=== PATIENT | male | born 1990 | race African-American/Black ===

== ENCOUNTER 2016-10-04 22:31 | Emergency (ER) | payer OTHER ==
[~2016-10-04] VITALS: Ht 180.3 cm; Wt 112.9 kg
[~2016-10-04 22:31] MED LIST: AZITHROMYCIN250 M1 PO; BENZONATATE200 M1 PO; FLEXERIL10 MG PO; MAGIC MOUTH WASH PO; MOTRIN600 MG PO; MOTRIN800 MG PO; PERCOCET 325 MG1 TA2 PO; POLYTRIM EYE DR10 ML OPH
[2016-10-04 22:57] LABS: ABSOLUTE BASOPHIL COUNT 0 /CUMM (0.0-0.2); ABSOLUTE EOSINOPHIL COUNT 0.2 /CUMM (0.0-0.7); ABSOLUTE GRANULOCYTE CT 4.5 /CUMM (1.4-6.5); ABSOLUTE LYMPH COUNT 2.5 /CUMM (1.2-3.4); ABSOLUTE MONOCYTE COUNT 0.7 /CUMM (0.10-0.60); BASOPHIL % 0.4 % (0.0-2.0); EOSINOPHIL % 2.3 % (0-5); GRANULOCYTE % 57.3 % (42.2-75.2); HEMATOCRIT 39.3 % (42-52); MEAN CORPUSCULAR HGB 29.3 PG (27.0-31.0); MEAN CORPUSCULAR HGB CONC 32.4 G/DL (33.0-37.0); MEAN CORPUSCULAR VOLUME 90.3 FL (80.0-94.0); MEAN PLATELET VOLUME 9.2 FL (7.4-10.4); PLATELET COUNT 183 /CUMM (130-400); RBC DISTRIBUTION WIDTH 12.5 % (11.5-14.5); RED BLOOD CELL CT 4.36 /CUMM (4.70-6.10); WHITE BLOOD CELL COUNT 7.9 /CUMM (4.8-10.8)
--- NOTE | 2016-10-04 23:14 | ED CARDIAC/CP/PALPITATIONS ---
History of Present Illness General Chief Complaint: Chest Pain Stated Complaint: "PER PT SHARP CP" Source: patient Exam Limitations: no limitations Allergies Coded Allergies: NO KNOWN ALLERGIES (05/27/15) Triage Note: TRIAGE: C/O 2-3 DAYS OF INTERMITTENT MIDSTERNAL TO MID EPIGASTRIC SHARP, BURNING PAIN. DENIES MITIGATING FACTORS. ALSO ENDORSES FREQUENT BELCHING. SYMPTOMS UNRELIEVED BY USE OF TUMS. REPORTS PAIN RADIATES INTO UPPER BACK. DENIES ASSOCIATED SOB OR DIAPHORESIS WITH PAIN. DENIES N/V/D LAST BM TODAY AND NORMAL. ENDORSES POOR APPETITE BUT TOLERATING FLUIDS. AFEBRILE. SINUS RHYTHM ON EKG WITHOUT ECTOPY. DENIES SIGNIFICANT MEDICAL HX OR DAILY MEDS. SST, LAV, FIELD, BLUE SENT FROM TRIAGE Triage Nurses Notes Reviewed? yes Onset: Abrupt Duration: day(s): (2), intermittent Timing: recent history Location: central Activities at Onset: none HPI: 25-year-old male comes into emergency room for further evaluation of central chest pain has been going on for the past 2 days. Patient reports aches. Since the pain sometimes in his back. He denies any vomiting. Some associated nausea earlier. Some increased belching and burping and worse when he lays flat. Denies any shortness of breath. Denies any leg swelling. Denies any mom says. Denies any fever or chills or cough. Denies any prior history of chest pain. Denies any drug use or smoking. Denies any family history of coronary artery disease less than 55 years of age. Nothing seems to make the symptoms better or worse. (COLLINS ASTUDILLO,KENNY) Vital Signs & Intake/Output Vital Signs & Intake/Output Vital Signs Date Time Temp Pulse Resp B/P B/P Pulse O2 O2 Flow FiO2 Mean Ox Delivery Rate 10/05 0159 98.5 66 18 126/76 99 Room Air 10/05 0005 99 Room Air 10/04 2250 98.3 64 16 129/78 98 Room Air ED Intake and Output 10/05 0000 10/04 1200 Intake Total Output Total Balance Patient 249 lb Weight Weight Reported by Patient Measurement Method Reconcile Medications Azithromycin 250 MG TABLET 1 DP PO AD URI 2 the first day followed by 1 for days 2-5 Benzonatate 200 MG CAPSULE 1 TAB PO TID COUGH CYCLOBENZAPRINE HCL (Flexeril) 10 MG TAB 1 TAB PO TID PRN PAIN Ibuprofen (Motrin) 800 MG TAB 1 TAB PO TID PRN PAIN Ibuprofen (Motrin) 600 MG TAB 1 TAB PO TID PAIN [MAGIC MOUTH WASH] LIQUID 10 ML PO TID SORE THROAT Omeprazole 40 MG CAPSULE.DR 1 CAP PO DAILY reflux OXYCODONE HCL/ACETAMINOPHEN (Percocet 5-325 MG Tablet) 325 MG/5 MG TAB 1-2 TAB PO Q4-6 PRN PRN PAIN Polytrim (Polytrim Eye Drops) 10 ML DROPS 1 GTT OPH Q6 CONJUNCTIVITIS 1 DROP EACH EYE (ANGELI VITALE,JIM Barlow) Past History Travel History Traveled to [place] past 21 day No Medical History Any Pertinent Medical History? see below for history Neurological: NONE EENT: NONE Cardiovascular: NONE Respiratory: NONE Gastrointestinal: NONE Hepatic: NONE Renal: NONE Musculoskeletal: NONE Psychiatric: NONE Endocrine: NONE Blood Disorders: NONE Cancer(s): NONE Surgical History Surgical History: unobtainable Psychosocial History What is your primary language Swedish Tobacco Use: Never used ETOH Use: denies use Illicit Drug Use: denies illicit drug use Family History Hx Contributory? Yes (see hpi) (KENNY GARCIA) Review of Systems Review of Systems Constitutional: Reports: no symptoms. EENTM: Reports: no symptoms. Respiratory: Reports: no symptoms. Cardiovascular: Reports: see HPI. GI: Reports: see HPI. Genitourinary: Reports: no symptoms. Musculoskeletal: Reports: no symptoms. Skin: Reports: no symptoms. Neurological/Psychological: Reports: no symptoms. Hematologic/Endocrine: Reports: no symptoms. Immunologic/Allergic: Reports: no symptoms. All Other Systems: Reviewed and Negative (KENNY GARCIA) Physical Exam Physical Exam General Appearance: well developed/nourished Head: atraumatic Eyes: Bilateral: normal appearance. Ears, Nose, Throat: normal ENT inspection, hearing grossly normal Neck: normal inspection Respiratory: normal breath sounds, no respiratory distress Cardiovascular: regular rate/rhythm Gastrointestinal: soft, tenderness (mild epigastric) Back: normal inspection, normal range of motion Extremities: normal range of motion, no edema Neurologic/Psych: awake, alert, oriented x 3 Skin: intact, normal color All Positive = PERC Ruled Out: Positive: age < 50 years, heart rate < 100 bpm, O2 sat > 94%, no hemoptysis, no hormone use, no prior DVT or PE, no unilateral leg swellin, no surgery/trauma w/ in 4w. Wells Criteria Score: 0 (KENNY GARCIA) Core Measures ACS in differential dx? No Severe Sepsis Present: No Septic Shock Present: No (ANGELI VITALE,JIM Barlow) Progress Differential Diagnosis: AMI, aortic dissection, cholecystitis, costochondritis, musculoskeletal pain, myocarditis, pancreatitis, pericarditis, pneumonia, pneumothorax, pulmonary embolism, PUD/GERD, PVCs/PACs, sepsis, unstable angina Diagnostic Imaging: Viewed by Me: Radiology Read. Discussed w/RAD: Radiology Read. Radiology Impression: SERVICE DATE: 10/04/16 EXAM TYPE: RAD - XRY-CHEST XRAY, PA AND LATERAL EXAMINATION: XR CHEST CLINICAL INFORMATION: Chest pain COMPARISON: None TECHNIQUE: 2 views of the chest were obtained. FINDINGS: Heart size is normal. Mediastinal contours are normal. Lungs are clear without consolidation, effusion or pneumothorax. Visualized osseous structures appear intact. IMPRESSION: No acute cardiopulmonary process Initial ED EKG: normal intervals, normal p-waves, normal QRS complex, normal sinus rhythm, rate (66) Hand-Off Endorsed To: ANGELI VITALE,JIM Barlow Pending: EKG (repeat), labs (repeat troponin) (KENNY GARCIA) Plan of Care: Orders Procedure Date/time Status TROPONIN LEVEL 10/05 0145 Complete EKG 10/05 0145 Active Add-on Test (ER Only) 10/05 0014 Active LIPASE 10/04 2245 Complete AMYLASE 10/04 2245 Complete TROPONIN LEVEL 10/04 2238 Complete COMPREHENSIVE METABOLIC PANEL 10/04 2238 Complete CBC WITHOUT DIFFERENTIAL 10/04 2238 Complete EKG 10/04 2233 Active Laboratory Tests 10/05/16 0140: Troponin I < 0.01 10/04/16 2245: Anion Gap 11, Estimated GFR > 60, BUN/Creatinine Ratio 14.5, Glucose 79, Calcium 9.5, Total Bilirubin 0.6, AST 24, ALT 48, Alkaline Phosphatase 57, Troponin I < 0.01, Total Protein 6.7, Albumin 4.1, Globulin 2.6, Albumin/Globulin Ratio 1.6, Amylase 49, Lipase 42, CBC w Diff NO MAN DIFF REQ, RBC 4.36 L, MCV 90.3, MCH 29.3, RDW 12.5, MPV 9.2, Gran % 57.3, Lymphocytes % 31.2, Monocytes % 8.8, Eosinophils % 2.3, Basophils % 0.4, Absolute Granulocytes 4.5, Absolute Lymphocytes 2.5, Absolute Monocytes 0.7 H, Absolute Eosinophils 0.2, Absolute Basophils 0, PUBS MCHC 32.4 L Departure Departure Disposition: HOME OR SELF CARE Condition: Stable Clinical Impression Primary Impression: Atypical chest pain Secondary Impressions: GERD (gastroesophageal reflux disease) Referrals: PATIENT HAS NO PRIMARY CARE DR (PCP/Family) Additional Instructions: Take omeprazole prescribed. 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 Return if any concerns worsening symptoms. Please go over all results of today's visit with your primary care doctor. Contact your primary care doctor to let them know you were here in the emergency room. There may be nonspecific findings which may not be related to your visit today here in the emergency room but may require further evaluation and chronic monitoring by your primary care doctor. If you had a laceration today the chance of foreign body always remains. You should follow-up with your primary care doctor for recheck in 3-5 days for a wound check. If you had an x-ray done there is a chance that a fracture could have been missed on initial read and you should follow-up with your primary care doctor for repeat x-rays if symptoms persist. If your blood pressure was elevated here in the emergency room please have rechecked by her primary care doctor within the next 48 hours by your primary care doctor. If you were prescribed a narcotic here in the emergency room or any type of controlled substances you're not allowed to drive while taking this medication or operate any type of heavy machinery. Narcotics can make you feel lightheaded dizziness nausea and can cause constipation. You may need to moss picker a stool softener. Thank you for choosing [facility] emergency room. Please return to the emergency room immediately if you have any other concerns worsening of symptoms. Departure Forms: Customer Survey General Discharge Information Prescriptions: Current Visit Scripts Omeprazole 1 CAP PO DAILY #30 CAP Ref 1 (KENNY GARCIA) Departure Comments 10/05/16, 3am... trop#2 neg, ekg #2 benign.... pt safe for discharge... close follow up advised. PA/OBSTETRICS TECH Co-Sign Statement Statement: ED Attending supervision documentation- [x] I saw and evaluated the patient. I have also reviewed all the pertinent lab results and diagnostic results. I agree with the findings and the plan of care as documented in the PA's/OBSTETRICS TECH's documentation. [] I have reviewed the ED Record and agree with the PA's/OBSTETRICS TECH's documentation. [] Additions or exceptions (if any) to the PAs/OBSTETRICS TECH's note and plan are summarized below: [] (ANGELI VITALE,JIM Barlow) Critical Care Note Critical Care Note Critical Care Time: non-applicable (ANGELI VITALE,JIM Barlow)
--- NOTE | 2016-10-04 23:47 | RADIOLOGY REPORT ---
EXAMINATION: XR CHEST CLINICAL INFORMATION: Chest pain COMPARISON: None TECHNIQUE: 2 views of the chest were obtained. FINDINGS: Heart size is normal. Mediastinal contours are normal. Lungs are clear without consolidation, effusion or pneumothorax. Visualized osseous structures appear intact. IMPRESSION: No acute cardiopulmonary process
[2016-10-05] MEDS ORDERED: OMEPRAZOLE40 M1 PO (00:25)
[2016-10-05 01:59] VITALS: BP 126/76
== END 2016-10-05 02:53 ==
LOC: ERH 22:31
PROVIDERS: Emergency Medicine
DX: R07.89 Other chest pain (principal); K21.9 Gastro-esophageal reflux disease without esophagitis
CPT/HCPCS: 93005; 93010